=== PATIENT | female | born 1945 | race Caucasian/White ===

== ENCOUNTER 2021-05-21 17:19 | Inpatient (IN) ==
[2021-05-21] MEDS ORDERED: *HR* OxyCODONE Immed Rel 5 MG TABLET PO PRN (20:23)
[2021-05-21] MEDS ORDERED: Naloxone 0.4 MG/ML INJ IVP PRN (20:23)
[2021-05-21] MEDS ORDERED: Ondansetron 4 MG/2 ML VIAL IVP PRN (20:23)
[2021-05-21] MEDS ORDERED: Melatonin 3 MG TABLET PO PRN (20:23)
[2021-05-21] MEDS ORDERED: *HR* HYDROcodone/Acet 5/325 mg TABLET PO PRN (20:23)
[2021-05-21] MEDS ORDERED: Acetaminophen 325 MG TABLET PO PRN (20:23)
[2021-05-21] MEDS: Ringers Solution, Lactated 1,000 ML IVC SCH (21:38)
[2021-05-21] MEDS ORDERED: Vancomycin 1,250 MG/262.5 ML IV.SOLN IVPB SCH (22:00)
[2021-05-21] MEDS ORDERED: Ipratropium/Albuterol Neb 3 ML IH PRN (22:15)
[2021-05-21 22:20] LABS: Calcium 7.9 mg/dL (8.6-10.3); Potassium 5.1 mEq/L (3.5-5.1)
[2021-05-22] MEDS: Cefepime HCl 2,000 MG in 0.9 % Sodium Chloride 10 ML IVP SCH ×2 (00:13→12:07)
[2021-05-22] MEDS: *HR* Heparin 5,000 UNIT/ML VIAL SQ SCH ×3 (05:35→20:33)
[2021-05-22 06:09] LABS: Basophils % 0.3 %; Eosinophils % 0.1 %; Hemoglobin 9.3 g/dL (11.5-15.4); Lymphocytes % 2.1 %; Mean Platelet Volume 10.2 fL (9.4-12.4)
[2021-05-22 06:10] LABS: Basophils # 0.1 K/mcL (0.0-0.2); Hematocrit 29.5 % (35.3-44.9); Immature Granulocytes % 1.2 % (0-4); Lymphocytes # 0.7 K/mcL (0.6-4.6); Mean Corpuscular HGB Conc 31.5 g/dL (31.6-35.5); Mean Corpuscular Hemoglobin 29.5 pg (28.0-33.3); Mean Corpuscular Volume 93.7 fL (83.0-100.0); Monocytes # 1.6 K/mcL (0.0-1.3); Monocytes % 4.8 %; Platelet Count 296 K/mcL (140-400); Red Blood Count 3.15 M/mcL (3.82-4.97); Red Cell Distribution Width 15.3 % (11.5-14.5); Segmented Neutrophils % 91.5 %
[2021-05-22 06:15] LABS: INR 1.4; Prothrombin Time 15.3 Seconds (9.4-12.1)
[2021-05-22 06:18] LABS: Neutrophils # 30.7 K/mcL (1.6-8.9); White Blood Count 33.6 K/mcL (4.3-11.1)
[2021-05-22] MEDS: Ringers Solution, Lactated 1,000 ML IVC SCH (06:22)
[2021-05-22 06:29] LABS: Albumin 2.4 g/dL (3.5-5.7); Bilirubin,Total 0.3 mg/dL (0.3-1.0); Calcium 7.8 mg/dL (8.6-10.3); Globulin 2.4 g/dL (2.4-3.5); Magnesium 1.6 mg/dL (1.6-2.6); Phosphorous 4.4 mg/dL (2.7-4.5); Potassium 5.2 mEq/L (3.5-5.1); Total Protein 4.8 g/dL (6.4-8.9)
[2021-05-22 10:58] LABS: Campylobacter by PCR Not detected (Not detect)
[2021-05-22 11:00] LABS: Adenovirus F 40/41 PCR Not detected (Not detect); Astrovirus PCR Not detected (Not detect); C.difficile Toxin A/B Gene PCR DETECTED (Not detect); Cryptosporidium by PCR Not detected (Not detect); Cyclospora cayetanensis PCR Not detected (Not detect); E. coli O157 by PCR Not detected (Not detect); Entamoeba histolytica PCR Not detected (Not detect); Enteroaggregative E.coli(EAEC) Not detected (Not detect); Enteropathogenic E.coli(EPEC) Not detected (Not detect); Enterotoxigenic E.coli (ETEC) Not detected (Not detect); Giardia lamblia PCR Not detected (Not detect); Norovirus GI/GII PCR Not detected (Not detect); Plesiomonas shigelloides PCR Not detected (Not detect); Rotavirus A PCR Not detected (Not detect); Salmonella PCR Not detected (Not detect); Sapovirus PCR Not detected (Not detect); Shig/EnteroinvasiveE coli EIEC Not detected (Not detect); Shigalike tox-prod E coli STEC Not detected (Not detect); Vibrio PCR Not detected (Not detect); Vibrio cholerae PCR Not detected (Not detect); Yersinia enterocolitica PCR Not detected (Not detect)
[2021-05-22] MEDS: Vancomycin Oral Soln 125 MG/2.5 ML UDC PO SCH ×3 (12:07→20:33)
[2021-05-22] MEDS ORDERED: 0.9 % Sodium Chloride 1,000 ML ONE (13:51)
[2021-05-22] MEDS ORDERED: Isovue-300 50ML VIAL IVP ONE (13:59)
[2021-05-22] MEDS ORDERED: *HR* Metoprolol 5 MG/5 ML VIAL IVP ONE (15:55)
[2021-05-22] MEDS: MetroNIDAZOLE 500 MG/100 ML 500 MG/100 ML BAG IVPB SCH (16:58)
[2021-05-23] MEDS: Cefepime HCl 2,000 MG in 0.9 % Sodium Chloride 10 ML IVP SCH (00:48)
[2021-05-23] MEDS: MetroNIDAZOLE 500 MG/100 ML 500 MG/100 ML BAG IVPB SCH ×3 (00:49→16:36)
[2021-05-23] MEDS: *HR* Heparin 5,000 UNIT/ML VIAL SQ SCH ×3 (05:21→20:56)
[2021-05-23 06:55] LABS: Hematocrit 28.1 % (35.3-44.9); Hemoglobin 9.1 g/dL (11.5-15.4); Mean Corpuscular HGB Conc 32.4 g/dL (31.6-35.5); Mean Corpuscular Hemoglobin 29.9 pg (28.0-33.3); Mean Corpuscular Volume 92.4 fL (83.0-100.0); Mean Platelet Volume 10.2 fL (9.4-12.4); Platelet Count 291 K/mcL (140-400); Red Blood Count 3.04 M/mcL (3.82-4.97); Red Cell Distribution Width 15.5 % (11.5-14.5); White Blood Count 23.5 K/mcL (4.3-11.1)
[2021-05-23] MEDS: amLODIPine 5 MG TABLET PO SCH (07:48)
[2021-05-23] MEDS: Vancomycin Oral Soln 125 MG/2.5 ML UDC PO SCH ×4 (07:50→20:53)
[2021-05-23] MEDS: Cefepime HCl 1,000 MG in 0.9 % Sodium Chloride 10 ML IVP SCH (12:06)
[2021-05-24] MEDS: MetroNIDAZOLE 500 MG/100 ML 500 MG/100 ML BAG IVPB SCH ×4 (02:13→23:54)
[2021-05-24] MEDS: Cefepime HCl 1,000 MG in 0.9 % Sodium Chloride 10 ML IVP SCH ×3 (02:14→23:54)
[2021-05-24 05:42] LABS: Basophils % 0.2 %; Eosinophils % 0.1 %; Hematocrit 31.5 % (35.3-44.9); Hemoglobin 9.8 g/dL (11.5-15.4); Immature Granulocytes % 0.4 % (0-4); Lymphocytes # 1.1 K/mcL (0.6-4.6); Mean Corpuscular HGB Conc 31.1 g/dL (31.6-35.5); Mean Corpuscular Hemoglobin 29.1 pg (28.0-33.3); Mean Corpuscular Volume 93.5 fL (83.0-100.0); Mean Platelet Volume 10.6 fL (9.4-12.4); Monocytes # 0.9 K/mcL (0.0-1.3); Monocytes % 5.3 %; Neutrophils # 15.3 K/mcL (1.6-8.9); Platelet Count 316 K/mcL (140-400); Red Blood Count 3.37 M/mcL (3.82-4.97); Red Cell Distribution Width 15.5 % (11.5-14.5); White Blood Count 17.4 K/mcL (4.3-11.1)
[2021-05-24 06:31] LABS: Calcium 7.8 mg/dL (8.6-10.3); Potassium 4.7 mEq/L (3.5-5.1)
[2021-05-24] MEDS: *HR* Heparin 5,000 UNIT/ML VIAL SQ SCH ×3 (06:39→21:01)
[2021-05-24] MEDS: Vancomycin Oral Soln 125 MG/2.5 ML UDC PO SCH ×4 (07:53→21:01)
[2021-05-24] MEDS: amLODIPine 5 MG TABLET PO SCH ×2 (07:58→08:08)
[2021-05-25 04:32] LABS: Basophils % 0.4 %; Eosinophils % 0.1 %; Hematocrit 32.5 % (35.3-44.9); Immature Granulocytes % 0.6 % (0-4); Lymphocytes % 8.9 %; Mean Corpuscular HGB Conc 30.8 g/dL (31.6-35.5); Mean Corpuscular Hemoglobin 28.8 pg (28.0-33.3); Mean Corpuscular Volume 93.7 fL (83.0-100.0); Mean Platelet Volume 10.5 fL (9.4-12.4); Monocytes # 0.7 K/mcL (0.0-1.3); Monocytes % 6.6 %; Neutrophils # 9.4 K/mcL (1.6-8.9); Platelet Count 269 K/mcL (140-400); Red Blood Count 3.47 M/mcL (3.82-4.97); Red Cell Distribution Width 15.5 % (11.5-14.5); Segmented Neutrophils % 83.4 %; White Blood Count 11.3 K/mcL (4.3-11.1)
[2021-05-25 04:54] LABS: Potassium 4.6 mEq/L (3.5-5.1)
[2021-05-25] MEDS: *HR* Heparin 5,000 UNIT/ML VIAL SQ SCH ×3 (04:54→22:40)
[2021-05-25 04:55] LABS: Calcium 7.6 mg/dL (8.6-10.3)
[2021-05-25] MEDS: amLODIPine 5 MG TABLET PO SCH (08:16)
[2021-05-25] MEDS: MetroNIDAZOLE 500 MG/100 ML 500 MG/100 ML BAG IVPB SCH ×3 (08:16→22:41)
[2021-05-25] MEDS: Vancomycin Oral Soln 125 MG/2.5 ML UDC PO SCH ×3 (08:17→17:31)
[2021-05-25] MEDS: Cefepime HCl 1,000 MG in 0.9 % Sodium Chloride 10 ML IVP SCH (12:22)
[2021-05-25] MEDS ORDERED: levoFLOXacin 750 MG TABLET PO SCH (15:15)
[2021-05-26] MEDS: Vancomycin Oral Soln 125 MG/2.5 ML UDC PO SCH ×5 (00:46→20:18)
[2021-05-26 04:57] LABS: Basophils % 0.4 %; Eosinophils % 0.2 %; Hematocrit 32.4 % (35.3-44.9); Hemoglobin 10.2 g/dL (11.5-15.4); Immature Granulocytes % 0.7 % (0-4); Lymphocytes # 0.9 K/mcL (0.6-4.6); Mean Corpuscular HGB Conc 31.5 g/dL (31.6-35.5); Mean Corpuscular Hemoglobin 29.4 pg (28.0-33.3); Mean Corpuscular Volume 93.4 fL (83.0-100.0); Mean Platelet Volume 10.3 fL (9.4-12.4); Monocytes # 0.8 K/mcL (0.0-1.3); Monocytes % 8.4 %; Neutrophils # 7.9 K/mcL (1.6-8.9); Platelet Count 255 K/mcL (140-400); Red Blood Count 3.47 M/mcL (3.82-4.97); Red Cell Distribution Width 15.3 % (11.5-14.5); Segmented Neutrophils % 81.3 %; White Blood Count 9.8 K/mcL (4.3-11.1)
[2021-05-26 05:37] LABS: Calcium 7.9 mg/dL (8.6-10.3); Potassium 4.5 mEq/L (3.5-5.1)
[2021-05-26] MEDS: *HR* Heparin 5,000 UNIT/ML VIAL SQ SCH ×3 (06:24→22:02)
[2021-05-26] MEDS: MetroNIDAZOLE 500 MG/100 ML 500 MG/100 ML BAG IVPB SCH (09:08)
[2021-05-26] MEDS: amLODIPine 5 MG TABLET PO SCH (09:11)
[2021-05-26 17:24] LABS: Influenza A PCR Negative (Negative); Influenza B PCR Negative (Negative); Resp. Syncytial Virus PCR Negative (Negative)
[2021-05-26 17:26] LABS: SARS-CoV-2 by PCR (In House) Negative (Negative)
[2021-05-26] MEDS: Linezolid 600 MG TABLET PO SCH (20:18)
[2021-05-27] MEDS: *HR* Heparin 5,000 UNIT/ML VIAL SQ SCH (05:40)
[2021-05-27 06:15] LABS: Basophils # 0.1 K/mcL (0.0-0.2); Basophils % 0.5 %; Eosinophils % 0.2 %; Hematocrit 31.9 % (35.3-44.9); Immature Granulocytes % 1.1 % (0-4); Lymphocytes % 11.3 %; Mean Corpuscular HGB Conc 31.3 g/dL (31.6-35.5); Mean Corpuscular Hemoglobin 29.2 pg (28.0-33.3); Mean Corpuscular Volume 93.3 fL (83.0-100.0); Mean Platelet Volume 10.5 fL (9.4-12.4); Monocytes # 0.8 K/mcL (0.0-1.3); Monocytes % 9.2 %; Neutrophils # 7.1 K/mcL (1.6-8.9); Platelet Count 262 K/mcL (140-400); Red Blood Count 3.42 M/mcL (3.82-4.97); Red Cell Distribution Width 15.4 % (11.5-14.5); Segmented Neutrophils % 77.7 %; White Blood Count 9.2 K/mcL (4.3-11.1)
[2021-05-27 06:34] LABS: Calcium 8.1 mg/dL (8.6-10.3); Potassium 4.4 mEq/L (3.5-5.1)
[2021-05-27] MEDS: amLODIPine 5 MG TABLET PO SCH (07:57)
[2021-05-27] MEDS: Linezolid 600 MG TABLET PO SCH (07:57)
[2021-05-27] MEDS: Vancomycin Oral Soln 125 MG/2.5 ML UDC PO SCH (07:57)
[2021-05-27 12:00] VITALS: BP 120/76; PULSE 80; TEMP 97.9; O2SAT 94
== END 2021-05-27 13:19 | DRG 871 ==
LOC: 2NNU → SUATTDRO 05-22 14:54 → 3ANU 05-25 21:20
PROVIDERS: ADMIT Internal Medicine; ATTEND Family Medicine